=== PATIENT | male | born 1970 | race Caucasian/White ===

== ENCOUNTER → 2020-02-21 | Day surgery (SDC) | payer OTHER ==
[2020-02-16 10:34] LABS: ANION GAP 12.8 mmol/L (8-16); BLOOD UREA NITROGEN 15 mg/dL (7-26); BUN/CREATININE RATIO 13 (6-25); CALCIUM 9.4 mg/dL (8.4-10.2); CARBON DIOXIDE 28 mmol/L (22-29); CHLORIDE 104 mmol/L (98-107); CREATININE, SERUM 1.14 mg/dL (0.72-1.25); EST GLOMERULAR FILTRATION RATE > 60 ML/MIN (60-); GLUCOSE 103 mg/dL (74-118); POTASSIUM 3.8 mmol/L (3.5-5.1); SODIUM 141 mmol/L (136-145)
[~2020-02-21] MED LIST: AVALIDE 150-121 EACH PO; BUPIVACAINE HCL 0.5% INJ 30 ML VIAL INJ ONE; CEFAZOLIN SOD 1 GM/NS 50ML 100 ML IV ONE; CRESTOR40 MG PO; DEXAMETHASONE SOD PHOS INJ 4 MG/ML VIAL ONE; ETOMIDATE 2 MG/ML 10 ML INJ IV ONE; FENTANYL CITRATE/PF 100MCG/2 ML INJ ONE; LIDOCAINE HCL 2% LOCAL INJ 5 ML SDV VIAL INJ ONE; NEOSTIGMINE 1 MG/ML 10ML VIAL ONE; NORVASC10 MG PO; ONDANSETRON HCL INJ 2MG/ML 2ML 2 MG/ML VIAL ONE; PROPOFOL IV EMULSION 10 MG/ML 20 ML VIAL ONE; SEVOFLURANE INHAL SOLN 250 ML PEN BTL ONE
--- NOTE | 2020-02-21 11:12 | Operative Report ---
DATE OF PROCEDURE: 02/21/2020 SURGEON: Antonia Bowers DPM CUSHION MAKER: None. PREOPERATIVE DIAGNOSIS: Chronic plantar fasciitis with bone spur, right foot. POSTOPERATIVE DIAGNOSIS: Chronic plantar fasciitis with bone spur, right foot. PROCEDURES: Endoscopic plantar fasciotomy with removal of bone spur, right foot. PATHOLOGY: None. ANESTHESIA: General anesthetic. HEMOSTASIS: Pneumatic ankle tourniquet. ESTIMATED BLOOD LOSS: Less than 10 mL. MATERIALS: Human allograft 2 x 2 from [employer]. COMPLICATIONS: None. CONDITION: Stable. PROCEDURE IN DETAIL: Under mild sedation, the patient was brought to the operating room, placed on the operating table in supine position. Following IV sedation, anesthesia was obtained with a general anesthetic. At this point, the right foot was scrubbed, prepped, and draped in usual aseptic manner. The pneumatic ankle tourniquet was inflated to 250 mmHg and the leg was lowered to the table. resection of bone spur, right foot. Attention was directed to the medial aspect of the right foot, where a linear incision was made overlying the incision of the plantar fascia. The incision was deepened down to the level of the fascia. The fascia was then isolated. The trocar and cannula were then inserted. The trocar was removed. The camera was then inserted. Medial, central, and lateral bands were then visualized, there were removed. Medial, central, and lateral bands were visualized. The fascia blade was then used, the medial and central bands were transected through and through, leaving the lateral band intact. All instruments were removed. The area was then flushed with copious amount of normal sterile saline solution. Utilizing an intraoperative fluoroscopy and a hand rasp the incision of plantar fascia was then removed. The area was then flushed with copious amount of normal sterile saline solution. Human allograft was then inserted and noted to adhesions. The area was then closed with 4-0 nylon. Clean dressing was applied consisting of Adaptic ointment, 4x4s, Kerlix, and an Benny bandage. The tourniquet was deflated. There was noted to be hyperemic response to all the digits. The patient tolerated the procedure and anesthesia well without complications, was transferred to recovery room with vital signs stable and vascular status intact to both feet. The patient will be discharged home when he meets criteria. He was given instructions to be nonweightbearing to ice and elevate the foot while at rest. To follow up with me in the office and to call the office if any questions, concerns, or new problems arise. CHERYL Tapia/MICHAEL /[id number]
[2020-02-21 11:15] VITALS: BP 136/87
== END | disposition home or self-care (01) ==
LOC: OR 07:09
PROVIDERS: ATTEND Podiatrist Foot & Ankle Surgery
DX: M77.31 Calcaneal spur, right foot (principal); M72.2 Plantar fascial fibromatosis; G47.33 Obstructive sleep apnea (adult) (pediatric); I10 Essential (primary) hypertension; E78.5 Hyperlipidemia, unspecified; Z01.810 Encounter for preprocedural cardiovascular examination; Z01.812 Encounter for preprocedural laboratory examination; Z11.59 Encounter for screening for other viral diseases
CPT/HCPCS: 28104; 29893; 36415; 80048; 93005; J0690; J1100; J2001; J2405; J2704; J2710; J3010; Q4150; U0002; 76000